=== PATIENT | female | born 1955 | race Two or more races ===

== ENCOUNTER 2018-05-13 07:20 | Day surgery (SDC) | payer MEDICARE, OTHER ==
[~2018-05-13 07:20] MED LIST: ACETAMINOPHEN 1,000 MG/100 ML BTL IV ONE
[2018-05-13] MEDS ORDERED: FENTANYL PF 100MCG/2ML VIAL IV ONE ×2 (07:21)
[2018-05-13] MEDS ORDERED: PROPOFOL 10 MG/ML VIAL IV ONE (07:21)
[2018-05-13] MEDS ORDERED: MIDAZOLAM HCL 2MG/2ML VIAL IV ONE (07:21)
[2018-05-13] MEDS ORDERED: HYDROCODONE/APAP 5/325MG TABLET PO ONE (07:21)
[2018-05-13] MEDS ORDERED: KETOROLAC 30 MG/ML VIAL IVP ONE (07:21)
[2018-05-13] MEDS ORDERED: BUPIVACAINE 0.25% W/EPI MPF 30ML VIAL IVP ONE (07:21)
[2018-05-13] MEDS ORDERED: DESFLURANE 240 ML BTL INH ONE (07:21)
[2018-05-13] MEDS ORDERED: LIDOCAINE 2% MDV (20MG/ML) 20ML VIAL IV ONE (07:21)
[2018-05-13] MEDS ORDERED: DEXAMETHASONE 4 MG/ML 1ML VIAL IVP ONE (07:21)
[2018-05-13 07:57] LABS: BASO % 0.1 % (0-6); EOS % 1.5 % (0-6); GRAN % 56.1 % (47-80); HEMATOCRIT 42.8 % (35.0-47.0); HEMOGLOBIN 13.8 gm/dl (11.6-16.0); MEAN CELL VOLUME 94.9 fl (81-97); MEAN CORPUSCULAR HEMOGLOBIN 30.6 pg (27-33); MEAN CORPUSCULAR HGB CONC 32.2 g/dl (32-36); MEAN PLATELET VOLUME 9.5 fl (7.4-10.4); MONO % 5.3 % (0-9); PLATELET COUNT 362 K/uL (130-400); RED BLOOD COUNT 4.51 M/uL (3.80-5.40); RED CELL DISTRIBUTION WIDTH 13.8 % (11.5-14.5); WHITE BLOOD COUNT W/O DIFF 6.8 K/uL (4.2-12.2)
[2018-05-13 08:02] LABS: BLOOD UREA NITROGEN 18 mg/dL (8-23); CREATININE 0.7 mg/dL (0.5-0.9); EST GLOMERULAR FILTRATION RATE > 60 mL/min; GLUCOSE,RANDOM 131 mg/dL (74-109)
--- NOTE | 2018-05-14 12:50 | Operative Note ---
DATE OF SURGERY: 05/13/2018 Surgeon: Lonny Chatterjee DO PREOPERATIVE DIAGNOSES: 1. Torn medial meniscus of the right knee. 2. Chondromalacia of the right knee. 3. Synovitis of the right knee. POSTOPERATIVE DIAGNOSES: 1. Torn medial meniscus of the right knee. 2. Chondromalacia of the right knee. 3. Synovitis of the right knee. OPERATION: 1. Arthroscopic partial medial meniscectomy, right knee. 2. Arthroscopic partial synovectomy, right knee (2 compartments). 3. Arthroscopic chondroplasty of medial femoral condyle, lateral femoral condyle, patella, and trochlea of the right knee. DESCRIPTION OF PROCEDURE: This 62-year-old female was taken to the operating room and placed in the supine position on the operating room table where general anesthesia was induced. The right lower extremity was elevated, exsanguinated, and the tourniquet inflated to 300 mmHg. Arthroscopic knee collins applied. Right knee prepped with Hibiclens and draped in the usual sterile fashion. 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 Severe essentially full-thickness degeneration of the trochlea was also noted. Only a small thin layer of articular cartilage was seen. Some loose fragments were present, and this was smoothed and trimmed with the rotating shaver as was the patella. Partial synovectomy was also performed there and at the base of the ACL. It had a significant amount of synovitis which was debrided some in both anterior and lateral compartments also seen and removed. The medial compartment was entered, and a root tear of the medial meniscus was evident. Utilizing the basket forceps, we debrided unstable fragments of the meniscus. It was then re-probed and confirmed to be stable. Some degenerative tearing was also present of the posterior horn. Extensive degeneration of the medial femoral condyle was present with very severe grade 3 changes noted throughout the entire weightbearing surface with loose flaps of articular cartilage also being identified. This was debrided with the rotating shaver. The lateral compartment did not demonstrate any evidence of meniscal lesion. However, there was significant articular cartilage defect with large flaps of loose articular cartilage on the weightbearing surface of the lateral femoral condyle which had no attachment to the condyle itself. These flaps of articular cartilage were removed and the remainder of the articular cartilage was trimmed to stable margins. The joint was then copiously irrigated and suctioned removing all chunks of meniscal tissue as well as broken pieces of articular cartilage, and these were removed from the joint. No other additional findings were present. The joint was suctioned and the instruments removed. The portals infiltrated with 0.25% Marcaine with epinephrine. Sterile dressings were applied and the patient taken to the recovery room in satisfactory condition. GROSS PATHOLOGY: There was advanced degenerative disease at the patellofemoral joint as mentioned above with severe grade changes noted on the medial femoral condyle as well as the lateral femoral condyle as described. A root tear of the posterior horn of the medial meniscus was also present. CC: MD PEDRO LUIS Molina
== END 2018-05-13 10:38 | disposition home or self-care (01) ==
LOC: SUR 07:20
PROVIDERS: ATTEND Orthopaedic Surgery
DX: S83.241A Other tear of medial meniscus, current injury, right knee, initial encounter (principal); M94.261 Chondromalacia, right knee; M65.9 Synovitis and tenosynovitis, unspecified; I10 Essential (primary) hypertension; E78.00 Pure hypercholesterolemia, unspecified; E11.9 Type 2 diabetes mellitus without complications
CPT/HCPCS: 29881; 29876; 01400; 93005; 85025; 80048; J1885; J3010